=== PATIENT | female | born 1960 | race Caucasian/White ===

== ENCOUNTER 2021-01-11 05:49 | Inpatient (IN) | payer MEDICARE ==
[~2021-01-11] VITALS: Ht 157.5 cm; Wt 78.0 kg
[~2021-01-11 05:49] MED LIST: COLACE 100MG C100 MG PO; CYMBALTA 20 MG20 MG PO; DULCOLAX5 MG PO; DULOXETINE HCL20 MG PO; HUMALOG100 UNIT/3 SQ; HYDROCORTISONE 1%; HYDROCORTISONE20 MG PO; KEPPRA750 MG PO; MIRALAX17 GM PO; NEURONTIN 100100 MG PO; NEURONTIN300 MG PO; NORCO 5-325 TA1 EACH PO; NORVASC10 MG PO; ONDANSETRON4 MG/2 ML INJ; PEPCID20 MG PO; PERCOCET 5-3251 EACH PO; PLAVIX 75 MG TA75 MG PO; PROTONIX40 MG PO; TOUJEO SQ; TUMS ULTRA400 MG PO; TYLENOL 500 MG500 MG PO; TYLENOL W/CODEIN1 E1 PO; VELPHORO500 MG PO; VITAMIN D2000 UNI1 PO; VITAMIN D32000 UNI1 PO; ZOFRAN 4 MG TAB4 MG PO; [UNRECOGNIZED DRUG - CODE] SC
[2021-01-11] MEDS ORDERED: KEPPRA 500 MG500 MG PO (07:31)
[2021-01-11 07:46] LABS: HEMOGLOBIN 9.8 gm/dl (12.3-15.3); RED BLOOD COUNT 3.12 M/UL (4.00-5.10)
[2021-01-11 08:06] LABS: BUN/CREATININE RATIO 4 (0-10)
[2021-01-11] MEDS ORDERED: LIPITOR TAB 2020 MG PO (08:58)
[2021-01-11] MEDS ORDERED: TUMS ULTRA400 MG PO (11:29)
[2021-01-11] MEDS ORDERED: RENVELA800 MG PO (11:31)
[2021-01-11] MEDS ORDERED: CATAPRES 0.1MG0.1 MG PO (13:42)
[2021-01-11] MEDS ORDERED: ASPIRIN CHEWABL81 MG PO (21:04)
[2021-01-12 04:11] LABS: RED BLOOD COUNT 3.1 M/UL (4.00-5.10); WHITE BLOOD COUNT 5.9 K/UL (4.5-11.0)
[2021-01-12 09:14] LABS: HBSAG SCREEN Negative (Negative)
[2021-01-12] MEDS ORDERED: POLYETHYLENE GL17 GM PO (15:51)
[2021-01-12] MEDS ORDERED: LEVOFLOXACIN500 MG PO (15:51)
--- NOTE | 2021-01-13 11:11 | NUR ---
PT IS 92 PERCENT OXYGEN SATURATION ON ROOM AIR.
--- NOTE | 2021-01-13 13:12 | NUR ---
WITH EXERTION PT'S OXYGEN SATURATION DROPPED TO 85 PERCENT.
== END 2021-01-13 16:21 | disposition home or self-care (01) | DRG 193 ==
LOC: ER1 05:49 → CDU 09:24 → M/S 01-12 05:48
PROVIDERS: Emergency Medicine; Internal Medicine Nephrology; ADMIT Internal Medicine
DX: J18.9 Pneumonia, unspecified organism (principal); J96.01 Acute respiratory failure with hypoxia; N18.6 End stage renal disease; I12.0 Hypertensive chronic kidney disease with stage 5 chronic kidney disease or end stage renal disease; I31.3 Pericardial effusion (noninflammatory); Z20.822 Contact with and (suspected) exposure to COVID-19; K56.41 Fecal impaction; E11.22 Type 2 diabetes mellitus with diabetic chronic kidney disease; D64.9 Anemia, unspecified; E78.5 Hyperlipidemia, unspecified; F32.9 Major depressive disorder, single episode, unspecified; M19.90 Unspecified osteoarthritis, unspecified site; G40.909 Epilepsy, unspecified, not intractable, without status epilepticus; E11.40 Type 2 diabetes mellitus with diabetic neuropathy, unspecified; Z85.038 Personal history of other malignant neoplasm of large intestine; Z91.15 Patient's noncompliance with renal dialysis; Z86.73 Personal history of transient ischemic attack (TIA), and cerebral infarction without residual deficits; Z99.2 Dependence on renal dialysis; Z79.82 Long term (current) use of aspirin; Z79.899 Other long term (current) drug therapy
CPT/HCPCS: 0240U; 36600; 71045; 80053; 80307; 81001; 82550; 82553; 82803; 82962; 83690; 83874; 84484; 85025; 87040; 87340; 94760; 96374; 96375; 96376; 99285; J0692; J1644; J2270; J2405; J2550

== ENCOUNTER 2021-01-14 06:24 | Inpatient (IN) | payer MEDICARE ==
[~2021-01-14] VITALS: Ht 157 cm; Wt 69.1 kg
[~2021-01-14 06:24] MED LIST changes: +ASPIRIN CHEWABL81 MG PO; +CATAPRES 0.1MG0.1 MG PO; +KEPPRA 500 MG500 MG PO; +LEVOFLOXACIN500 MG PO; +LIPITOR TAB 2020 MG PO; +POLYETHYLENE GL17 GM PO; +RENVELA800 MG PO
[2021-01-14 06:48] LABS: RED BLOOD COUNT 3.07 M/UL (4.00-5.10); WHITE BLOOD COUNT 6.5 K/UL (4.5-11.0)
[2021-01-15 03:13] LABS: RED BLOOD COUNT 3.09 M/UL (4.00-5.10); WHITE BLOOD COUNT 6.5 K/UL (4.5-11.0)
--- NOTE | 2021-01-15 10:21 | NUR ---
SPOKE WITH MARLO SKAGGS (PT'S POA) RE COMING TO HOSPITAL TO GO WITH PT TO RADIOLOGY FOR LUMBAR PUNCTURE PER RADIOLOGIST REQUEST AND MARLO STATES WILL COME AROUND 12:30 TODAY
[2021-01-15 17:03] LABS: CRYPTOCOCCUS NEOFORMANS/GATTII Not Detected (Negative); CYTOMEGALOVIRUS Not Detected (Negative); ENTEROVIRUS Not Detected (Negative); ESCHERICHIA COLI K1 Not Detected (Negative); HAEMOPHILUS INFLUENZAE Not Detected (Negative); HERPES SIMPLEX VIRUS 1 Not Detected (Negative); HERPES SIMPLEX VIRUS 2 Not Detected (Negative); HUMAN HERPESVIRUS 6 Not Detected (Negative); HUMAN PARECHOVIRUS Not Detected (Negative); LISTERIA MONOCYTOGENES Not Detected (Negative); NEISERRIA MENINGITIDIS Not Detected (Negative); STREPTOCOCCUS AGALACTIAE Not Detected (Negative); STREPTOCOCCUS PNEUMONIAE Not Detected (Negative); VARICELLA ZOSTER VIRUS Not Detected (Negative)
[2021-01-15 17:18] LABS: RBC (AUTOMATED) 200 10^6 (0); WBC (AUTOMATED 5 10^3 (0-5)
[2021-01-15 17:19] LABS: RBC (AUTOMATED) 100 10^6 (0); WBC (AUTOMATED 1 10^3 (0-5)
[2021-01-15 17:35] LABS: GLUCOSE,CSF 65 mg/dL (50-80); TOTAL PROTEIN,CSF 71 mg/dL (20-45)
[2021-01-16 06:35] LABS: HEMOGLOBIN 10.1 gm/dl (12.3-15.3); RED BLOOD COUNT 3.11 M/UL (4.00-5.10); WHITE BLOOD COUNT 6.7 K/UL (4.5-11.0)
[2021-01-16 10:15] LABS: HBSAG SCREEN Negative (Negative); HEP A AB, IGM Negative (Negative); HEP B CORE AB, IGM Negative (Negative); HEP C VIRUS AB <0.1 (0.0-0.9)
[2021-01-17 06:07] LABS: HEMOGLOBIN 10.2 gm/dl (12.3-15.3); RED BLOOD COUNT 3.11 M/UL (4.00-5.10)
[2021-01-19 12:53] LABS: HEMOGLOBIN 9.8 gm/dl (12.3-15.3); RED BLOOD COUNT 3.12 M/UL (4.00-5.10); WHITE BLOOD COUNT 7.3 K/UL (4.5-11.0)
[2021-01-23] MEDS ORDERED: DOXYCYCLINE HY100 M2 PO (11:44)
[2021-01-27 06:20] LABS: HEMOGLOBIN 11.9 gm/dl (12.3-15.3); RED BLOOD COUNT 3.69 M/UL (4.00-5.10); WHITE BLOOD COUNT 6.9 K/UL (4.5-11.0)
[2021-01-29 06:34] LABS: HEMOGLOBIN 11.9 gm/dl (12.3-15.3); RED BLOOD COUNT 3.72 M/UL (4.00-5.10); WHITE BLOOD COUNT 7.8 K/UL (4.5-11.0)
--- NOTE | 2021-01-30 13:25 | NUR ---
RETURNED FROM DIALYSIS, VITAL SIGNS BLOOD PRESSURE 133/65, O2 SATURATION 100%, PULSE 87, TEMPERATURE 97.6. DIALYSIS NURSE SHAHRAM STATED THAT NO FLUID WAS REMOVED RELATED TO HYPOTENSION AT TIME OF DIALYSIS. NO S/SX OF DISTRESS. BED LOCKED AND LOW. CALL LIGHT WITHIN REACH.
== END 2021-01-31 19:00 | DRG 91 ==
LOC: ER1 06:24 → MED SURG 4 09:38 → CDU 09:38 → MED SURG 4 17:08
PROVIDERS: Emergency Medicine; Internal Medicine; Internal Medicine Infectious Disease; Internal Medicine Nephrology; Physician Assistant Medical; ADMIT Internal Medicine
PROC: 5A1D70Z Performance of Urinary Filtration, Intermittent, Less than 6 Hours Per Day (ICD-10-PCS; 2021-01-14)
PROC: 009U3ZX Drainage of Spinal Canal, Percutaneous Approach, Diagnostic (ICD-10-PCS; principal; 2021-01-15)
PROC: 5A1D70Z Performance of Urinary Filtration, Intermittent, Less than 6 Hours Per Day (ICD-10-PCS; 2021-01-16)
PROC: 5A1D70Z Performance of Urinary Filtration, Intermittent, Less than 6 Hours Per Day (ICD-10-PCS; 2021-01-18)
PROC: 5A1D70Z Performance of Urinary Filtration, Intermittent, Less than 6 Hours Per Day (ICD-10-PCS; 2021-01-25)
PROC: 5A1D70Z Performance of Urinary Filtration, Intermittent, Less than 6 Hours Per Day (ICD-10-PCS; 2021-01-28)
PROC: 5A1D70Z Performance of Urinary Filtration, Intermittent, Less than 6 Hours Per Day (ICD-10-PCS; 2021-01-30)
DX: G92 Toxic encephalopathy (principal); N18.6 End stage renal disease; I12.0 Hypertensive chronic kidney disease with stage 5 chronic kidney disease or end stage renal disease; J90 Pleural effusion, not elsewhere classified; G40.909 Epilepsy, unspecified, not intractable, without status epilepticus; E11.22 Type 2 diabetes mellitus with diabetic chronic kidney disease; E78.5 Hyperlipidemia, unspecified; F32.9 Major depressive disorder, single episode, unspecified; E11.40 Type 2 diabetes mellitus with diabetic neuropathy, unspecified; Z99.2 Dependence on renal dialysis; Z86.73 Personal history of transient ischemic attack (TIA), and cerebral infarction without residual deficits; Z98.890 Other specified postprocedural states; E86.0 Dehydration; T36.8X5A Adverse effect of other systemic antibiotics, initial encounter; Z20.822 Contact with and (suspected) exposure to COVID-19
CPT/HCPCS: ECHO; 0240U; 36415; 51701; 70450; 70551; 71045; 80048; 80053; 80074; 80307; 81001; 82140; 82550; 82553; 82607; 82945; 82962; 83605; 83690; 83735; 84100; 84157; 84443; 84484; 85025; 85027; 85049; 85610; 85730; 86140; 87040; 87070; 87086; 87205; 87210; 87483; 89051; 90935; 90937; 93005; 93306; 93880; 94760; 95816; 96372; 96374; 96375; 97110-GP-CQ; 97116; 97116-GP-CQ; 97161; 97530-GP-CQ; 99285; G0008; J0360; J1953; J2310; J2405; J3411; J7030; J7042; U0002

== ENCOUNTER 2022-07-16 07:38 | Inpatient (IN) | payer MEDICARE ==
[~2022-07-16] VITALS: Ht 157.5 cm; Wt 87.6 kg
[~2022-07-16 07:38] MED LIST changes: +DOXYCYCLINE HY100 M2 PO
[2022-07-16 08:37] LABS: HEMOGLOBIN 11.6 gm/dl (12.3-15.3); RED BLOOD COUNT 3.59 M/UL (4.00-5.10); WHITE BLOOD COUNT 8.6 K/UL (4.5-11.0)
[2022-07-16] MEDS ORDERED: GABAPENTIN100 MG PO (14:23)
[2022-07-16] MEDS ORDERED: PROTONIX40 MG PO (14:24)
[2022-07-16] MEDS ORDERED: TYLENOL EXTRA500 MG PO (14:26)
[2022-07-16] MEDS ORDERED: ONDANSETRON HCL4 MG PO (14:26)
[2022-07-17 04:47] LABS: HEMOGLOBIN 11.2 gm/dl (12.3-15.3); RED BLOOD COUNT 3.47 M/UL (4.00-5.10); WHITE BLOOD COUNT 7.1 K/UL (4.5-11.0)
[2022-07-18 04:22] LABS: HEMOGLOBIN 11.3 gm/dl (12.3-15.3); RED BLOOD COUNT 3.49 M/UL (4.00-5.10); WHITE BLOOD COUNT 6.8 K/UL (4.5-11.0)
[2022-07-18 07:10] LABS: HBSAG SCREEN Negative (Negative); HCV AB <0.1 (0.0-0.9); HEP A AB, IGM Negative (Negative); HEP B CORE AB, IGM Negative (Negative)
--- NOTE | 2022-07-18 15:13 | NUR ---
1510: JEFF CALLED FROM DIALYSIS, PATIENT BLOOD PRESSURE DROPPED 59/32 & PATIENT BECAME LETHARGIC. JEFF STOPPED DIALYSIS WITH A NET OF 250mL TAKEN OFF OF THE PATIENT. PATIENT AROUSED TO STERNAL RUB. DR AVALOS NOTIFIED. ORDER TO TRANSFER TO PCU FOR LEVOPHED DRIP, AND 1L OF NORMAL SALINE BOLUS. 1539: PATIENT BLOOD PRESSURE UP TO 106/59. DR AVALOS NOTIFIED. STILL WANTS TO TRANSFER PATIENT TO PCU BUT HOLD LEVOPHED DRIP. 1550: REPORT CALLED TO SHANE IN PCU. PATIENT GOING TO ROOM [id number].
--- NOTE | 2022-07-20 00:49 | NUR ---
RECIEVED PT FROM [id number] AT THIS TIME, NO CHANGES IN PRIOR ASSESSMENT COMPLETED AT 1900. NAD DISTRESS NTD. PATIENT RESTING IN BED. SHE VOICES 0 COMPLAINTS OF PAIN OR DISCOMFORT AT THIS TIME.
== END 2022-07-20 11:37 | disposition home or self-care (01) | DRG 564 ==
LOC: ER1 07:38 → CDU 11:35 → M/S 11:35 → PROG CARE 07-18 16:33 → M/S 07-20 00:43
PROVIDERS: Internal Medicine Nephrology; Physician Assistant; ADMIT Internal Medicine
PROC: 5A1D70Z Performance of Urinary Filtration, Intermittent, Less than 6 Hours Per Day (ICD-10-PCS; principal; 2022-07-17)
PROC: 5A1D70Z Performance of Urinary Filtration, Intermittent, Less than 6 Hours Per Day (ICD-10-PCS; 2022-07-19)
DX: T79.6XXA Traumatic ischemia of muscle, initial encounter (principal); N18.6 End stage renal disease; I12.0 Hypertensive chronic kidney disease with stage 5 chronic kidney disease or end stage renal disease; E87.5 Hyperkalemia; Z66 Do not resuscitate; R29.6 Repeated falls; W18.30XA Fall on same level, unspecified, initial encounter; I95.9 Hypotension, unspecified; E78.5 Hyperlipidemia, unspecified; E11.22 Type 2 diabetes mellitus with diabetic chronic kidney disease; F32.A Depression, unspecified; G40.909 Epilepsy, unspecified, not intractable, without status epilepticus; E11.42 Type 2 diabetes mellitus with diabetic polyneuropathy; Z99.2 Dependence on renal dialysis; Z79.4 Long term (current) use of insulin; Z98.890 Other specified postprocedural states; Z86.73 Personal history of transient ischemic attack (TIA), and cerebral infarction without residual deficits; Z88.1 Allergy status to other antibiotic agents
CPT/HCPCS: 36415; 70450; 71045; 73620; 80048; 80053; 80074; 82550; 82553; 83735; 83880; 84132; 84439; 84443; 84484; 85025; 93005; 96374; 97116; 97116-GP-CQ; 97162; 97166; 97530; 97530-GP-CQ; 99285; C9113; G0378; J1644; J2405